=== PATIENT | female | born 1955 | race Caucasian/White ===

== ENCOUNTER 2019-10-18 10:26 | Day surgery (SDC) | payer MEDICARE ==
[2019-10-16 09:24] VITALS: BMI 26.5
[~2019-10-18 10:26] MED LIST: LACTATED RINGERS 1,000 ML IV SCH; LIDOCAINE 1% 20 ML VIAL (10MG/ML) FOR IV START INTRADERMA PRN
[2019-10-18 10:45] VITALS: TEMP 98
[2019-10-18] MEDS ORDERED: PROPOFOL 10 MG/ML 20 ML VIAL IV ONE (11:15)
--- NOTE | 2019-10-18 11:20 | P.GSHP ---
History of Present Illness H&P Date: 10/18/19 Chief Complaint: Colon cancer screening Patient has today for colonoscopy. She has not had one previously. No family history of colon cancer. No bowel related complaints. Past Medical History Additional Past Medical History / Comment(s): Varicose veins. History of Any Multi-Drug Resistant Organisms: None Reported Past Surgical History: Tubal Ligation Past Anesthesia/Blood Transfusion Reactions: No Reported Reaction Smoking Status: Never smoker Past Alcohol Use History: None Reported Past Drug Use History: None Reported - Past Family History Father Family Medical History: Coronary Artery Disease (CAD), Deep Vein Thrombosis (DVT) Medications and Allergies Home Medications Medication Instructions Recorded Confirmed Type Fish Oil/Dha/Epa [Fish Oil 1,200 2,400 each PO DAILY 10/16/19 10/16/19 History mg Fish Oil] Glucos Sul 2Kcl/MSM/Chond/C/Mn 1 each PO DAILY 10/16/19 10/16/19 History [Glucosamine Chondroitin Cap] Red Yeast Rice 1,200 mg PO DAILY 10/16/19 10/16/19 History Ubidecarenone [Co Q-10] 200 mg PO DAILY 10/16/19 10/16/19 History Allergies Allergy/AdvReac Type Severity Reaction Status Date / Time No Known Allergies Allergy Verified 10/16/19 08:52 Surgical - Exam Vital Signs Temp Pulse Resp BP Pulse Ox 98 F 83 18 157/74 98 10/18/19 10:42 10/18/19 10:42 10/18/19 10:42 10/18/19 10:42 10/18/19 10:42 Physical exam: General: Well-developed, well-nourished HEENT: Normocephalic, sclerae nonicteric Abdomen: Nontender, nondistended Extremities: No edema Neuro: Alert and oriented Assessment and Plan (1) Colon cancer screening Narrative/Plan: Will proceed with colonoscopy Current Visit: Yes Status: Acute Code(s): Z12.11 - ENCOUNTER FOR SCREENING FOR MALIGNANT NEOPLASM OF COLON SNOMED Code(s): 748806872
--- NOTE | 2019-10-18 11:42 | P.PCN ---
Date of Procedure: 10/18/19 Procedure(s) Performed: PREOPERATIVE DIAGNOSIS: Colon cancer screening POSTOPERATIVE DIAGNOSIS: Multiple colonic polyps, mild diverticulosis PROCEDURE: Colonoscopy with snare polypectomy ANESTHESIA: MAC SURGEON: Jose Peck M.D. SPECIMENS: Polyps ENDOSCOPIC PROCEDURE: The patient was placed on the endoscopy table in the left decubitus position. The Olympus colonoscope was inserted into the anus and passed under direct visualization to the base of the cecum. The appendiceal orifice was visualized. From that point the scope was slowly withdrawn inspecting all surfaces carefully. There was noted to be a small polyp on the ileocecal valve itself. This was removed using the snare with cautery t echnique. The ascending colon appeared normal. At the hepatic flexure 2 polyps were identified both removed using the snare with cautery technique. The largest polyp was approximately 1 cm. In the transverse colon. Additional polyps are identified and removed using a similar technique. In the descending colon additional polyp was identified and removed in a similar technique. The remainder of the descending sigmoid and rectum are free of any neoplastic inflammatory or polypoid lesions. There was mild left-sided diverticulosis. Digital rectal examination was normal. The patient was taken to the recovery room in stable condition per anesthesia guidelines. RECOMMENDATIONS: Await biopsy results. Recommend shorter-term follow-up given the multiple polyps. Recommend follow-up colonoscopy 3 years.
[2019-10-18 11:49] VITALS: RESP 16
[2019-10-18 12:12] VITALS: BP 107/69; PULSE 60
== END 2019-10-18 12:48 | disposition home or self-care (01) ==
LOC: ORWHC2ENDO 10:26
PROVIDERS: ATTEND Surgery
DX: D12.0 Benign neoplasm of cecum (principal); D12.4 Benign neoplasm of descending colon; D12.3 Benign neoplasm of transverse colon; K57.30 Diverticulosis of large intestine without perforation or abscess without bleeding; I83.90 Asymptomatic varicose veins of unspecified lower extremity; Z98.51 Tubal ligation status; Z79.899 Other long term (current) drug therapy; Z82.49 Family history of ischemic heart disease and other diseases of the circulatory system
CPT/HCPCS: 88305; 45385; J2704

== ENCOUNTER → 2021-01-28 | Outpatient (CLI) | payer MEDICARE ==
--- NOTE | 2021-01-28 10:15 | ECHOF ---
Referral Reason:I20.9 angina MEASUREMENTS -------- HEIGHT: 160.0 cm WEIGHT: 65.8 kg BP: RVIDd: 3.9 cm (< 3.3) IVSd: 1.0 cm (0.6 - 1.1) LVIDd: 4.1 cm (3.9 - 5.3) LVPWd: 1.0 cm (0.6 - 1.1) IVSs: 1.2 cm LVIDs: 2.2 cm LVPWs: 1.6 cm LAESV Index (A-L): 38.15 ml/m Ao Diam: 2.8 cm (2.0 - 3.7) AV Cusp: 1.9 cm (1.5 - 2.6) MV EXCURSION: 16.703 mm (> 18.000) MV EF SLOPE: 66 mm/s (70 - 150) EPSS: 0.5 cm MV E Byron: 1.08 m/s MV DecT: 221 ms MV A Byron: 0.92 m/s MV E/A Ratio: 1.18 RAP: 5.00 mmHg RVSP: 38.03 mmHg FINDINGS -------- Sinus rhythm. This was a technically good study. The left ventricular size is normal. Left ventricular wall thickness is normal. Overall left vent ricular systolic function is normal with, an EF between 55 - 60 %. The diastolic filling pattern is normal for the age of the patient 14.12. The right ventricle is mild to moderately enlarged. LA is moderately dilated 34-39 ml/m2 The right atrial size is normal. Interatrial and interventricular septum intact. The aortic valve is trileaflet and appears structurally normal. There is no evidence of aortic regu rgitation. There is no evidence of aortic stenosis. Dlhn-kw-xaufviqu mitral regurgitation is present. Mild tricuspid regurgitation present. There is mild pulmonary hypertension. The right ventricular systolic pressure, as measured by Doppler, is 38.03mmHg. There is no pulmonic regurgitation present. The aortic root size is normal. Normal inferior vena cava with normal inspiratory collapse consistent with estimated right atrial pre ssure of 5 mmHg. There is no pericardial effusion. CONCLUSIONS -------- 1. The left ventricular size is normal. 2. Left ventricular wall thickness is normal. 3. Overall left ventricular systolic function is normal with, an EF between 55 - 60 %. 4. The diastolic filling pattern is normal for the age of the patient 14.12 5. The right ventricle is mild to moderately enlarged. 6. LA is moderately dilated 34-39 ml/m2 7. Zwbm-dp-axdflxyn mitral regurgitation is present. 8. Mild tricuspid regurgitation present. 9. There is mild pulmonary hypertension. 10. The right ventricular systolic pressure, as measured by Doppler, is 38.03mmHg. CLINIC ASSISTANT: Saundra Garcia RDCS
--- NOTE | 2021-01-28 12:04 | P.STRESS ---
- Stress Test Note Stress Test Results/Findings: Exam Performed: stress test Exam Date: 01/28/21 Reason for Exam: Chest Pain Height: 5 ft 3 in Weight: 65.771 kg Protocol: Patrick Stage: 4 Duration of Exercise: 11:06 Resting Heart Rate: 63 Resting Blood Pressure: 137/85 Maximum Achieved Heart Rate: 166 Maximum Achieved Blood Pressure: 211/81 85% PMHR: 130 100% PMHR: 153 METS: 12.1 Technologist Comment: Stress Test Results/Findings: Patient underwent exercise stress EKG with a Patrick protocol treadmill stress test. Patient exercised into Stage 4 for a total of 11 minutes and 6 seconds reaching a total of 12.1 METS. Patient's maximum heart rate was 166 which represented 100 % age-predicted maximum heart rate. Stress EKG findings: At baseline patient's EKG showed normal sinus rhythm, right axis deviation, no significant ST or T wave abnormalities. At peak exercise, EKG showed 1.[address] depressions in leads V4 through V6 and [address] depressions in leads 2, 3 aVF concerning for ischemia although may also be seen and hypertensive response as she did have increased blood pressure up to 213/111. Conclusions: 1. Abnormal EKG response to exercise with inferior and lateral ST depressions consistent with ischemia. Also may be seen in hypertensive response as patient had increased BP up to 213/111. Clinical correlation recommended. May consider stress test with imaging modality. 2. Excellent exercise capacity.
== END ==
LOC: RADECHMAIN 08:25
PROVIDERS: ATTEND Family Medicine
DX: I08.1 Rheumatic disorders of both mitral and tricuspid valves (principal); I27.20 Pulmonary hypertension, unspecified
CPT/HCPCS: 93017; 93306

== ENCOUNTER → 2021-02-11 | Outpatient (CLI) | payer MEDICARE ==
[2021-02-11 15:14] LABS: HCT 39.9 % (34.0-46.0); HGB 13.5 gm/dL (11.4-16.0); MCH 30.5 pg (25.0-35.0); MCHC 33.8 g/dL (31.0-37.0); MCV 90.4 fL (80.0-100.0); Mean Platelet Volume 7.5; Platelet Count 201 k/uL (150-450); RBC 4.41 m/uL (3.80-5.40); RDW 13.5 % (11.5-15.5); WBC 4.8 k/uL (3.8-10.6)
[2021-02-11 15:23] LABS: Potassium 4.1 mmol/L (3.5-5.1)
== END | disposition home or self-care (01) ==
LOC: LABPAT 14:42
PROVIDERS: ATTEND Internal Medicine Interventional Cardiology
DX: Z01.818 Encounter for other preprocedural examination (principal); R07.89 Other chest pain
CPT/HCPCS: 36415; 80051; 82565; 84520; 85027

== ENCOUNTER 2021-02-14 06:32 | Day surgery (SDC) | payer MEDICARE ==
[2021-02-12 13:28] VITALS: BMI 25.7
[~2021-02-14 06:32] MED LIST changes: +ALPRAZolam 0.25 MG TAB PO PRN; +ALPRAZolam 0.5 MG TAB PO PRN; +HEPARIN SODIUM,PORCINE 10,000 UNIT in SODIUM CHLORIDE 0.9% 1,000 ML IRRIGATION PRN; +HEPARIN SODIUM,PORCINE 2,500 UNIT in SODIUM CHLORIDE 0.9% 250 ML IRRIGATION PRN; -LACTATED RINGERS 1,000 ML IV SCH; -LIDOCAINE 1% 20 ML VIAL (10MG/ML) FOR IV START INTRADERMA PRN; +NITROGLYCERIN SL TABS 0.4 MG TAB SUBLINGUAL PRN; +SODIUM CHLORIDE 0.9% 1,000 ML in EMPTY BAG 1 BAG IV ONE
[2021-02-14 06:51] VITALS: RESP 16; TEMP 98.3
[2021-02-14] MEDS ORDERED: ASPIRIN 325 MG TAB PO ONE (07:00)
[2021-02-14] MEDS ORDERED: MIDAZOLAM 2 MG/2 ML VIAL IV ONE ×2 (07:45→07:54)
[2021-02-14] MEDS ORDERED: LIDOCAINE 1% INJ 10MG/ML (20 ML MDV) SQ ONE (07:45)
[2021-02-14] MEDS: VERAPAMIL SYRINGE (5 MG/10 ML) INTRAARTER ONE ×2 (07:51→08:37)
[2021-02-14] MEDS: HEPARIN SODIUM 1,000 UN/ML (10ML VL) IV ONE ×2 (07:52→08:06)
[2021-02-14] MEDS ORDERED: TICAGRELOR 90 MG TAB PO ONE (08:06)
[2021-02-14] MEDS ORDERED: IOPAMIDOL-370 125ML BTL INJ ONE (08:26)
[2021-02-14] MEDS ORDERED: NITROGLYCERIN 1000MCG/10ML SYRINGE INTRACORON ONE (08:27)
[2021-02-14] MEDS ORDERED: IOPAMIDOL-370 100ML BTL INJ ONE (08:35)
[2021-02-14] MEDS ORDERED: ZOLPIDEM 5 MG TAB PO PRN (08:54)
[2021-02-14] MEDS ORDERED: ATROPINE SULFATE 0.1 MG/ML 10ML SYRINGE IV PRN (08:54)
[2021-02-14] MEDS ORDERED: NITROGLYCERIN SL TABS 0.4 MG TAB SUBLINGUAL PRN (08:54)
[2021-02-14] MEDS ORDERED: MAG HYDROX/AL HYDROX/SIMETH 30 ML CUP PO PRN (08:54)
[2021-02-14] MEDS ORDERED: RX INFO: IV CONTRAST WAS GIVEN 1 EACH MISC MISCELLANE PRN (08:54)
[2021-02-14] MEDS ORDERED: NON FORMULARY DRUG (Glucos Sul 2kcl/Msm/Chond/C/Mn [Glucosamine Chondroitin Cap] 1 EACH Ca PO SCH (09:00)
[2021-02-14] MEDS ORDERED: SODIUM CHLORIDE 0.9% 1,000 ML IV SCH (09:00)
[2021-02-14] MEDS ORDERED: NON FORMULARY DRUG (Aspirin [Adult Low Dose Aspirin Ec] 81 MG Tablet.Dr) PO SCH (09:00)
[2021-02-14] MEDS ORDERED: METOPROLOL SUCCINATE (ER) 25 MG TAB.ER.24H PO SCH (09:00)
[2021-02-14] MEDS ORDERED: BIOTIN PO SCH (09:00)
[2021-02-14] MEDS ORDERED: TICAGRELOR 90 MG TAB PO SCH (09:00)
[2021-02-14] MEDS ORDERED: NON FORMULARY DRUG (Ubidecarenone [Co Q-10] 100 MG Capsule) PO SCH (09:00)
[2021-02-14] MEDS ORDERED: NON FORMULARY DRUG (Fish Oil/Dha/Epa [Fish Oil 1,200 Mg Fish Oil] 1 EACH Capsule) PO SCH (09:00)
[2021-02-14] MEDS ORDERED: [UNRECOGNIZED DRUG - OTHER] PO SCH (09:00)
--- NOTE | 2021-02-14 09:23 | LTR ---
February 14, 2021 Re: Mraibel Baltazar Dear Dr. Vega: Ms. Maribel Ledesma was seen in the office recently for further evaluation of chest discomfort and abnormal stress test. 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 I did perform successful stenting of both with an excellent angiographic results and without any complication. I want to thank you for allowing me to participate in her care and please do not hesitate to call if you have any question or concern. Sincerely, John Silva MD [id number] / ELVERN: [id number] /
--- NOTE | 2021-02-14 09:39 | CC ---
CARDIAC CATHETERIZATION REPORT CARDIAC CATHETERIZATION AND PERCUTANEOUS CORONARY INTERVENTION: DATE OF SERVICE: February 14, 2021 PERFORMING PHYSICIAN: John Silva MD. PROCEDURE PERFORMED: 1. Selective right and left coronary angiogram. 2. Left heart catheterization. 3. Successful stenting of the mid left anterior descending artery using 3.0 x 18 mm Xience drug-eluting stent with an excellent angiographic result. 4. Successful stenting of the first diagonal branch of the LAD using 2.75 x 15 mm Xience drug-eluting stent with an excellent angiographic result. INDICATION: This is a 65-year-old female patient who was seen in the office recently as a new patient for further evaluation of chest discomfort. She underwent a stress test and that came in to be abnormal with evidence of possible anterior ischemia. Because of that, a heart catheterization was advised. APPROACH: Right radial artery. COMPLICATION: None. LEVEL OF SEDATION: Moderate with sedation length of 54 minutes. PROCEDURE DESCRIPTION: After obtaining an informed consent, the patient was brought to the cardiac cath lab nurse. The right radial artery was cannulated using micropuncture technique, the micropuncture wire passed easily then I placed a 6-Bulgarian sheath at the right radial artery. After that I gave the patient 2 mg of verapamil IA and 6000 units of heparin IV. Selective right and left coronary angiogram performed using JR4 and JL3.5 catheters. After that, left heart catheterization was performed using 5-Bulgarian pigtail catheter. I did intervene on the LAD and diagonal. Please see a separate paragraph for that. SELECTIVE CORONARY ANGIOGRAM: 1. The right coronary artery is a large caliber vessel and it is a dominant vessel. The proximal RCA appeared to be angiographically normal. The mid RCA has tubular lesion, appeared to be in the range of 20% to 30%. The RCA distally appeared to be angiographically normal. 2. The left main is angiographically normal. It bifurcates into LCX and LAD. 3. The LCX is a large caliber vessel. It is a nondominant vessel. The proximal left circumflex is normal and gives rise into the first obtuse marginal branch which is a large caliber vessel with mild disease in its ostium. The left circumflex after that continued as a moderate caliber vessel in the AV groove. 4. The Left Anterior Descending Artery: The proximal LAD appeared to have mild disease only. Gives rise into a large diagonal branch which appeared to have a tight lesion in the mid in the range of 80%. The mid LAD appeared to have another tubular lesion in the range of 70% to 80%. The LAD distally appeared to be angiographically normal. HEMODYNAMICS: The LVEDP was 12-14 mmHg without significant gradient across the aortic valve. PCI OF THE LAD AND DIAGONAL: Anticoagulation was achieved only with heparin with continuous ACT monitoring throughout the procedure and also we gave the patient additional heparin throughout the procedure. I did engage the left main using JL3.5 guide. I did wire the LAD as well as a diagonal. The LAD was wired using a run-through wire and the diagonal was wired using a Whisper wire. After that I did balloon angioplasty on both the LAD and diagonal using 2.5 x 12 mm balloon. I placed in the diagonal 2.75 x 15 mm Xience drug-eluting stent and the stent was positioned under fluoroscopy guidance and deployed under 10 atmospheres for 20 seconds with the following angiogram showing good angiographic results. I placed in the LAD 3.0 x 18 mm Xience drug-eluting stent and the stent also was positioned under fluoroscopy guidance and deployed under its nominal pressure. The following angiogram showed excellent angiographic results and the procedure was completed without any complication. CONCLUSION: 1. Severe disease involving the LAD as well as first diagonal branch of the LAD. 2. Successful stenting of both the LAD and first diagonal branch using two drug- eluting stents with excellent angiographic results. POSTPROCEDURE MANAGEMENT: 1. Aggressive cholesterol control. 2. Risk factor modifications. 3. Follow up with the patient. MMNORMAN / IJN: [id number] /
[2021-02-14 11:38] VITALS: BP 156/72
[2021-02-14 13:10] VITALS: PULSE 58
== END 2021-02-14 14:35 | disposition home or self-care (01) ==
LOC: CATHCVL 06:32
PROVIDERS: ATTEND Internal Medicine Interventional Cardiology
DX: I25.110 Atherosclerotic heart disease of native coronary artery with unstable angina pectoris (principal); I10 Essential (primary) hypertension; E78.5 Hyperlipidemia, unspecified; R94.39 Abnormal result of other cardiovascular function study; I34.0 Nonrheumatic mitral (valve) insufficiency; Z82.49 Family history of ischemic heart disease and other diseases of the circulatory system; Z79.82 Long term (current) use of aspirin; Z79.899 Other long term (current) drug therapy; Z88.8 Allergy status to other drugs, medicaments and biological substances
CPT/HCPCS: 93458; C9600; C9601; C1769 ×5; C1887; C1725; C1874; C1894; J2250; J2001; J1644; Q9967 ×2